=== PATIENT | female | born 2000 | race American Indian/Alaskan Native ===

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

== ENCOUNTER 2020-01-24 13:20 | Emergency (ER) | payer SELFPAY ==
[~2020-01-24] VITALS: Ht 172.7 cm; Wt 79.4 kg
[~2020-01-24 13:20] MED LIST: AMOXICILLIN500 M1 PO; NORCO 5-325 TA1 EACH PO; PROPARACAINE HC15 ML OTIC
== END 2020-01-24 14:15 | disposition home or self-care (01) ==
LOC: ED 13:20
DX: J02.9 Acute pharyngitis, unspecified (principal)

== ENCOUNTER 2020-10-12 12:39 | Emergency (ER) | payer OTHER ==
[~2020-10-12] VITALS: Ht 172.7 cm; Wt 79.4 kg
== END 2020-10-12 16:22 | disposition home or self-care (01) ==
LOC: ED 12:39
DX: O20.0 Threatened abortion (principal); Z20.828 Contact with and (suspected) exposure to other viral communicable diseases; Z3A.01 Less than 8 weeks gestation of pregnancy
CPT/HCPCS: 76801; 76817; 80053; 81001; 84702; 85025; 86900; 86901; 99284-25; C9803; U0003

== ENCOUNTER 2020-10-13 23:57 | Emergency (ER) | payer OTHER ==
[~2020-10-13] VITALS: Ht 175.3 cm; Wt 79.4 kg
--- OUTSIDE RECORDS SUMMARY | 2020-10-14 | XMS ---
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 Gopi has no Care Guidelines for this patient. Genie VISIT COUNT (12 MO.) [address] TOTAL 4 NOTE: Visits indicate total known visits. ED/C VISIT TRACKING (12 MO.) [facility] COMPLAINT: - CRAMPING/VAGINAL BLEEDING 10/12/2020 12:40 ROSHAN Aragon TYPE: Emergency COMPLAINT: - SPOTTING, 8WKS 03/27/2020 10:29 [facility] Mason JAVIER TYPE: Urgent Care DIAGNOSES: - Sore Throat 02/04/2020 10:46 [facility] Isabel JAVIER TYPE: Emergency COMPLAINT: - THROAT PAIN 01/24/2020 13:21 ROSHAN Aragon TYPE: Emergency COMPLAINT: - COUGH, PATIENT MSE TO CLINIC DIAGNOSES: - Acute pharyngitis, unspecified - Cough INPATIENT VISIT TRACKING (12 MO.) No inpatient visits to display in this time frame [email or web address]
== END 2020-10-14 00:50 | disposition home or self-care (01) ==
LOC: ED 23:57
DX: O03.9 Complete or unspecified spontaneous abortion without complication (principal)
CPT/HCPCS: 99283

== ENCOUNTER 2020-12-07 00:25 | Emergency (ER) | payer OTHER ==
[~2020-12-07] VITALS: Ht 175.3 cm; Wt 82.1 kg
[2020-12-07] MEDS ORDERED: CEPHALEXIN500 MG PO (01:03)
[2020-12-07] MEDS ORDERED: PYRIDIUM200 MG PO (01:05)
== END 2020-12-07 01:13 | disposition home or self-care (01) ==
LOC: ED 00:25
DX: N39.0 Urinary tract infection, site not specified (principal)
CPT/HCPCS: 81001; 84703; 99283

== ENCOUNTER 2020-12-20 09:22 | Emergency (ER) | payer OTHER ==
[~2020-12-20] VITALS: Ht 175.3 cm; Wt 79.4 kg
[~2020-12-20 09:22] MED LIST changes: +CEPHALEXIN500 MG PO; +PYRIDIUM200 MG PO
--- OUTSIDE RECORDS SUMMARY | 2020-12-20 09:24 | XMS ---
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 Care History Medical/Surgical 10/16/2020 [facility] - PATIENT HAS AN APT WITH DR MUÑOZ 10/18/2020. Genie VISIT COUNT (12 MO.) 1 [facility] H. 5 [facility]. TOTAL 6 NOTE: Visits indicate total known visits. ED/UCC VISIT TRACKING (12 MO.) 12/20/2020 09:22 [facility] Castillo [place] TYPE: Emergency COMPLAINT: - SORE THROAT 12/07/2020 00:25 [facility] Cast[facility] [place] TYPE: Emergency COMPLAINT: - URINE PROBLEM DIAGNOSES: - Dysuria - Urinary tract infection, site not specified 10/13/2020 23:57 [facility] Castillo [place] TYPE: Emergency COMPLAINT: - CRAMPING/VAGINAL BLEEDING DIAGNOSES: - Complete or unspecified spontaneous without complication 10/12/2020 12:40 ROSHAN Aragon TYPE: Emergency COMPLAINT: - SPOTTING, 8WKS DIAGNOSES: - Threatened - Less than 8 weeks gestation of - Contact with and (suspected) exposure to other viral communicable diseases 02/04/2020 10:46 [facility] YAYA TYPE: Emergency COMPLAINT: - THROAT PAIN 01/24/2020 13:21 [facility] Castillo [place] TYPE: Emergency COMPLAINT: - COUGH, PATIENT MSE TO CLINIC DIAGNOSES: - Acute pharyngitis, unspecified - Cough INPATIENT VISIT TRACKING (12 MO.) No inpatient visits to display in this time frame [email or web address]
[2020-12-20] MEDS ORDERED: ADVIL200 MG PO (09:54)
[2020-12-20] MEDS ORDERED: AMOXICILLIN500 MG PO (12:45)
== END 2020-12-20 13:50 | disposition home or self-care (01) ==
LOC: ED 09:22
DX: J02.0 Streptococcal pharyngitis (principal); Z20.822 Contact with and (suspected) exposure to COVID-19; Z87.891 Personal history of nicotine dependence
CPT/HCPCS: 87880; 99283; C9803; U0003

== ENCOUNTER 2021-02-14 19:16 | Emergency (ER) | payer OTHER ==
[~2021-02-14] VITALS: Ht 172.7 cm; Wt 85.8 kg
[~2021-02-14 19:16] MED LIST changes: +ADVIL200 MG PO; +AMOXICILLIN500 MG PO
== END 2021-02-14 21:58 | disposition home or self-care (01) ==
LOC: ED 19:16
DX: O26.851 Spotting complicating pregnancy, first trimester (principal); Z3A.01 Less than 8 weeks gestation of pregnancy
CPT/HCPCS: 76801; 76817; 81001; 84702; 99284-25

== ENCOUNTER 2021-05-30 16:41 | Emergency (ER) | payer OTHER ==
[~2021-05-30] VITALS: Ht 172.7 cm; Wt 88.5 kg
[2021-05-30] MEDS ORDERED: PRENATAL MULTI1 EAC3 PO (18:19)
== END 2021-05-30 19:43 | disposition home or self-care (01) ==
LOC: ED 16:41
DX: O98.812 Other maternal infectious and parasitic diseases complicating pregnancy, second trimester (principal); B37.3 Candidiasis of vulva and vagina; Z3A.22 22 weeks gestation of pregnancy
CPT/HCPCS: 99283

== ENCOUNTER 2021-10-03 11:35 | Inpatient (IN) | payer OTHER ==
[~2021-10-03] VITALS: Ht 172.7 cm; Wt 103.0 kg
[~2021-10-03 11:35] MED LIST changes: +PRENATAL MULTI1 EAC3 PO
--- NOTE | 2021-10-03 20:15 | PR ---
[facility] [address] [facility] [place], [place] [address] Signed Progress Notes IP Datetime Report Generated by CPN: 10/03/2021 20:15 PROGRESS NOTES: [id number] Impression: Normal Progression of Labor Procedures: Artificial ROM; Sterile Vag Exam Plan: Continue Present Management VITAL SIGNS: [id number] Vital Signs: Reviewed; Within Normal Limits EXAM: [id number] Dilatation: 4.5 Effacement: 100 Station: -2 Contractions: irregular MEMBRANES: [id number] Comments: Comfortable after epidural. She is progressing well. Will continue. FETUS A: [id number] FHR Baseline: 140 Variability: Moderate 6-25bpm Accelerations: 15X15 Decelerations: None FHR Category: Category I Presentation: Vertex Comments on Fetus A: No evidence of metabolic acidosis FETUS B: [id number] Signing Physician: Dawna Sims MD Copies: ~ *Electronically Signed* 10/03/212014 DAWNA SIMS MD PATIENT NAME: BELÉN LUCASFRANK CONNOLLYBETH PROGRESS NOTE DATE OF : 99 PHYSICIAN: DAWNA SIMS MD RPT #: [id number] REPORT IS CONFIDENTIAL AND NOT TO BE RELEASED WITHOUT AUTHORIZATION
--- NOTE | 2021-10-03 21:24 | PR ---
[facility] [address] [facility] [place], [place] [address] Signed Progress Notes IP Datetime Report Generated by CPN: 10/03/2021 21:23 PROGRESS NOTES: [id number] Impression: Normal Progression of Labor Procedures: Intrauterine Pressure Catheter; Scalp Electrode; Sterile Vag Exam Plan: Continue Present Management VITAL SIGNS: [id number] Vital Signs: Reviewed; Within Normal Limits EXAM: [id number] Dilatation: 5.0 Effacement: 100 Station: -2 Contractions: irregular MEMBRANES: [id number] Comments: Progressing. Will continue close observation of FHR. FETUS A: [id number] FHR Baseline: 140 Variability: Moderate 6-25bpm Accelerations: 15X15 Decelerations: None FHR Category: Category I Presentation: Vertex Comments on Fetus A: No evidence of metabolic acidosis FETUS B: [id number] Signing Physician: Dawna Sims MD Copies: ~ *Electronically Signed* 10/03/212122 DAWNA SIMS MD PATIENT NAME: LUCASADAN PROGRESS NOTE DATE OF : 99 PHYSICIAN: DAWNA SIMS MD RPT #: [id number] REPORT IS CONFIDENTIAL AND NOT TO BE RELEASED WITHOUT AUTHORIZATION
--- NOTE | 2021-10-05 09:03 | PR ---
[facility] [address] [facility] [place], [place] [address] Signed PP Progress Notes Datetime Report Generated by CPN: 10/05/2021 09:03 SUBJECTIVE: [id number] Pain: Within Normal Limits Nausea/Vomiting: Denies Vital Signs: [id number] Vital Signs: Reviewed; Within Normal Limits Cardiovascular: Not Done Respiratory: Not Done Abdomen/Uterus: Abnormal Lochia: Normal Vulva/Perineum: Not Done Breasts: Not Done CVA Tenderness: Not Done Extremities: Normal Incision: Not Applicable Progress: Normal Exam Comments: Fundus firm, nontender @ U-2. H/H 06/13.9, WBC 15.1, plat 274k IMPRESSION/PLAN/PROCEDURES: [id number] Impression: Normal Progression Other Impression: severe anemia secondary to blood loss Other Plans: transfuse 1 Unit PRBCs, IV iron infusion Procedures: Transfusion Other Procedures: IV feraheme Progress Notes: Feeling much better than yesterday am. I suspect she had much more blood loss than measured with her significant anemia. I do think she would benefit from transfusion as well as iron infusion. She is amenable to this. Signing Physician: Dawna Sims MD Copies: ~ *Electronically Signed* 10/05/21902 DAWNA SIMS MD PATIENT NAME: ADAN LUCAS PROGRESS NOTE DATE OF : 99 PHYSICIAN: DAWNA SIMS MD RPT #: [id number] REPORT IS CONFIDENTIAL AND NOT TO BE RELEASED WITHOUT AUTHORIZATION
--- NOTE | 2021-10-06 09:30 | PR ---
[facility] [address] [facility] [place], [place] [address] Signed PP Progress Notes Datetime Report Generated by CPN: 10/06/2021 09:30 SUBJECTIVE: [id number] Pain: Within Normal Limits Pain Comments: feels better overall Nausea/Vomiting: Denies Vital Signs: [id number] Vital Signs: Reviewed; Within Normal Limits Cardiovascular: Not Done Respiratory: Not Done Abdomen/Uterus: Abnormal Lochia: Normal Vulva/Perineum: Not Done Breasts: Not Done CVA Tenderness: Not Done Extremities: Normal Incision: Not Applicable Progress: Normal Exam Comments: Fundus firm, NT @ U-2 H/H 8.7/27.2, WBC 18.8, plat 339k IMPRESSION/PLAN/PROCEDURES: [id number] Impression: Normal Progression Other Impression: severe anemia secondary to blood loss Plan: Discharge Other Plans: transfuse 1 Unit PRBCs, IV iron infusion Procedures: Transfusion Other Procedures: IV feraheme Progress Notes: H/H much improved and she is doing well overall. I feel she is ready for D/C. Signing Physician: Dawna Sims MD Copies: ~ *Electronically Signed* 10/06/21929 DAWNA SIMS MD PATIENT NAME: ADAN LUCAS PROGRESS NOTE DATE OF : 99 PHYSICIAN: DAWNA SIMS MD RPT #: [id number] REPORT IS CONFIDENTIAL AND NOT TO BE RELEASED WITHOUT AUTHORIZATION
== END 2021-10-06 11:20 | disposition home or self-care (01) | DRG 807 ==
LOC: FBCO 11:35 → FBC 14:00
PROVIDERS: ADMIT Obstetrics & Gynecology; ATTEND Obstetrics & Gynecology
PROC: 10E0XZZ Delivery of Products of Conception, External Approach (ICD-10-PCS; principal; 2021-10-05)
PROC: 0KQM0ZZ Repair Perineum Muscle, Open Approach (ICD-10-PCS; 2021-10-05)
PROC: 3E0DXGC Introduction of Other Therapeutic Substance into Mouth and Pharynx, External Approach (ICD-10-PCS; 2021-10-05)
PROC: 10907ZC Drainage of Amniotic Fluid, Therapeutic from Products of Conception, Via Natural or Artificial Opening (ICD-10-PCS; 2021-10-05)
PROC: 3E0R3BZ Introduction of Anesthetic Agent into Spinal Canal, Percutaneous Approach (ICD-10-PCS; 2021-10-05)
PROC: 00HU33Z Insertion of Infusion Device into Spinal Canal, Percutaneous Approach (ICD-10-PCS; 2021-10-05)
PROC: 10H07YZ Insertion of Other Device into Products of Conception, Via Natural or Artificial Opening (ICD-10-PCS; 2021-10-05)
PROC: 30233N1 Transfusion of Nonautologous Red Blood Cells into Peripheral Vein, Percutaneous Approach (ICD-10-PCS; 2021-10-06)
DX: O48.0 Post-term pregnancy (principal); Z37.0 Single live birth; O26.03 Excessive weight gain in pregnancy, third trimester; O90.81 Anemia of the puerperium; D50.0 Iron deficiency anemia secondary to blood loss (chronic); Z87.891 Personal history of nicotine dependence; Z3A.40 40 weeks gestation of pregnancy; Z86.16 Personal history of COVID-19
CPT/HCPCS: 01960; 36430; 59025; 82803; 85027; 86850; 86900; 86901; 86922; A9270; J2405; J2590; J2795; J3010; J7121; P9016; Q0138

== ENCOUNTER 2025-02-27 20:25 | Emergency (ER) | payer BC ==
[~2025-02-27] VITALS: Ht 182.9 cm; Wt 112.4 kg
[2025-02-27 20:56] LABS: CORONAVIRUS COVID-19 AG NEGATIVE (NEGATIVE); INFLUENZA A AG POSITIVE (NEGATIVE); INFLUENZA B AG NEGATIVE (NEGATIVE)
[2025-02-27] MEDS ORDERED: ACETAMINOPHEN 500 MG TAB PO ONE (21:30)
[2025-02-27] MEDS ORDERED: OSELTAMIVIR PHOSPHATE 75 MG HOME.PACK PO ONE (21:30)
[2025-02-27 21:40] VITALS: BP 128/82
== END 2025-02-27 21:40 | disposition home or self-care (01) ==
LOC: ED 20:25
PROVIDERS: Internal Medicine
DX: O99.513 Diseases of the respiratory system complicating pregnancy, third trimester (principal); J10.1 Influenza due to other identified influenza virus with other respiratory manifestations; Z3A.30 30 weeks gestation of pregnancy; Z79.899 Other long term (current) drug therapy
CPT/HCPCS: 36415; 99283; A9270